=== PATIENT | male | born 1925 | race Caucasian/White ===

== ENCOUNTER 2016-09-04 09:34 | Emergency (ER) | payer OTHER ==
[~2016-09-04] VITALS: Ht 157.5 cm; Wt 38.5 kg
[~2016-09-04 09:34] MED LIST: ALBUTEROL SULF8.5 GM IH; ASPIR-LOW81 MG PO; ATORVASTATIN CA40 MG PO; Aspirin E.C. PO; LATANOPROST2.5 ML RIGHT EYE; LEVOFLOXACIN750 MG PO; PERCOCET 5/31 TABLET PO; SILVADENE20 GM TP; SIMVASTATIN40 MG PO; SPIRIVA1 INHALATI IH; TYLENOL EXTRA500 MG PO; VENTOLIN HFA18 GM IH
[2016-09-04 10:34] LABS: EOSINOPHIL (%) 0.4 % (0-5); HEMATOCRIT 33.1 % (38.0-50.0); IMMATURE GRANULOCYTE (%) 0.8 % (0.0-0.7); INSTRUMENT ABS NEUTROPHIL CT 4.4 K/uL; LYMPHOCYTE COUNT 0.4 K/uL (1.0-2.8); MCH 29.9 PG (29.0-34.0); MCHC 31.1 G/DL (30.0-36.0); MCV 96.2 FL (86-99); MONOCYTE (%) 6.3 % (3-12); MONOCYTE COUNT 0.3 K/uL (0-0.8); NEUTROPHIL (%) 85.3 % (45-76); NEUTROPHIL COUNT 4.4 K/uL (1.8-6.4); PLATELET COUNT 213 K/uL (156-360); RBC DIS.WIDTH-CV 14.1 % (11.8-14.6); RBC DIS.WIDTH-SD 49.7 % (39-53); RED BLOOD COUNT 3.44 M/uL (4.00-5.50); WHITE BLOOD COUNT 5.1 K/uL (4.1-10.2)
[2016-09-04 10:44] LABS: CHLORIDE 107 mEq/L (99-109); POTASSIUM 3.9 mEq/L (3.7-5.4); SODIUM 142 mEq/L (136-147)
[2016-09-04 10:47] LABS: GLUCOSE 147 mg/dL (70-99)
[2016-09-04 10:48] LABS: ANION GAP 11 MEQ/L (2-14)
[2016-09-04 10:49] LABS: TOTAL BILIRUBIN 0.5 mg/dL (0.0-1.0)
[2016-09-04 10:50] LABS: ALKALINE PHOSPHATASE 118 IU/L (3-129); GFR ESTIMATE (CALCULATED) > 59 mL/min/
[2016-09-04 10:51] LABS: UREA NITROGEN (BUN) 25 mg/dL (9-23)
[2016-09-04] MEDS ORDERED: SILVADENE20 GM TP (12:03)
[2016-09-04] MEDS ORDERED: DOXYCYCLINE HY100 M3 PO (12:31)
[2016-09-04 16:11] VITALS: BP 122/62
== END 2016-09-04 16:15 | disposition home or self-care (01) ==
LOC: EME 09:34
PROVIDERS: Emergency Medicine
DX: L89.312 Pressure ulcer of right buttock, stage 2 (principal); L89.619 Pressure ulcer of right heel, unspecified stage; R62.7 Adult failure to thrive; C76.1 Malignant neoplasm of thorax; F03.90 Unspecified dementia, unspecified severity, without behavioral disturbance, psychotic disturbance, mood disturbance, and anxiety; J44.9 Chronic obstructive pulmonary disease, unspecified; E78.5 Hyperlipidemia, unspecified; Z79.82 Long term (current) use of aspirin; Z68.1 Body mass index [BMI] 19.9 or less, adult; Z87.891 Personal history of nicotine dependence
CPT/HCPCS: 73610; 80053; 81003; 85025; 99281; 99285; J7030